=== PATIENT | female | born 2000 | race Caucasian/White ===

== ENCOUNTER 2021-08-28 17:05 | Emergency (ER) | payer OTHER ==
[~2021-08-28] VITALS: Ht 167.6 cm; Wt 59.1 kg
[2021-08-28 17:06] VITALS: BP 132/75
[2021-08-28] MEDS ORDERED: BCP PO (17:14)
[2021-08-28 17:24] VITALS: O2SAT 99
[2021-08-28 18:11] LABS: RSV AMPLIFICATION NEGATIVE (NEGATIVE)
== END 2021-08-28 18:20 | disposition home or self-care (01) ==
LOC: M ED 17:05
DX: Z20.822 Contact with and (suspected) exposure to COVID-19 (principal); Z88.6 Allergy status to analgesic agent; R05.9 Cough, unspecified; R51.9 Headache, unspecified

== ENCOUNTER 2021-12-03 13:03 | Emergency (ER) | payer OTHER ==
[~2021-12-03] VITALS: Ht 167.6 cm; Wt 62.7 kg
[~2021-12-03 13:03] MED LIST: BCP PO
[2021-12-03] MEDS ORDERED: CEPH500C PO (17:47)
[2021-12-03 18:11] VITALS: BP 119/61
== END 2021-12-03 18:12 | disposition home or self-care (01) ==
LOC: M ED 13:03
DX: N30.90 Cystitis, unspecified without hematuria (principal); F17.200 Nicotine dependence, unspecified, uncomplicated; Z88.5 Allergy status to narcotic agent

== ENCOUNTER 2022-06-27 20:33 | Emergency (ER) | payer OTHER ==
[~2022-06-27] VITALS: Ht 167.6 cm; Wt 68.1 kg
[~2022-06-27 20:33] MED LIST changes: +CEPH500C PO
[2022-06-28 00:59] LABS: HCG, SERUM QUALITATIVE POSITIVE (NEGATIVE)
[2022-06-28 04:57] VITALS: BP 111/57
== END 2022-06-28 04:58 | disposition home or self-care (01) ==
LOC: M ED 20:33
DX: O26.891 Other specified pregnancy related conditions, first trimester (principal); R10.2 Pelvic and perineal pain; F17.200 Nicotine dependence, unspecified, uncomplicated; Z88.5 Allergy status to narcotic agent; Z3A.00 Weeks of gestation of pregnancy not specified

== ENCOUNTER 2022-07-11 14:51 | Emergency (ER) | payer OTHER ==
[~2022-07-11] VITALS: Ht 167.6 cm; Wt 70.6 kg
[2022-07-11 16:24] LABS: BASO % 0.3 % (0.0-1.0); EOS # 0.1 10^3/uL (0.0-0.5); EOS % 0.9 % (0.0-3.0); HEMATOCRIT 37.8 % (36.0-47.0); HEMOGLOBIN 13.1 g/dl (12.0-15.5); LYMPH # 1.8 10^3/uL (1.5-5.0); LYMPH % 26.5 % (24.0-44.0); MEAN CORPUSCULAR HEMOGLOBIN 30.8 pg (27.0-33.0); MEAN CORPUSCULAR HGB CONC 34.7 g/dl (32.0-36.5); MEAN CORPUSCULAR VOLUME 88.9 fl (80.0-96.0); MONO # 0.7 10^3/uL (0.0-0.8); MONO % 10.4 % (2.0-8.0); NEUTROPHILS # 4.3 10^3/uL (1.5-8.5); NEUTROPHILS % 61.8 % (36.0-66.0); PLATELET COUNT, AUTOMATED 279 10^3/uL (150-450); RED BLOOD COUNT 4.25 10^6/uL (4.00-5.40)
[2022-07-11] MEDS ORDERED: ACETAMINOPHEN 500 MG TAB PO ONE (17:15)
[2022-07-11 17:18] LABS: BLOOD UREA NITROGEN 15 MG/DL (7-18); CALCIUM LEVEL 9.1 MG/DL (8.5-10.1); CARBON DIOXIDE LEVEL 24 MEQ/L (21-32); CHLORIDE LEVEL 110 MEQ/L (98-107); CREATININE FOR GFR 0.53 MG/DL (0.55-1.30); GLOMERULAR FILTRATION RATE > 60.0 (>60); GLUCOSE, FASTING 103 MG/DL (70-100); HCG, SERUM QUANTITATIVE 2293 MIU/ML; POTASSIUM SERUM 4.2 MEQ/L (3.5-5.1); SODIUM LEVEL 140 MEQ/L (136-145)
[2022-07-11 19:41] VITALS: BP 123/68
== END 2022-07-11 19:44 | disposition home or self-care (01) ==
LOC: M ED 14:51
DX: O03.9 Complete or unspecified spontaneous abortion without complication (principal); Z88.5 Allergy status to narcotic agent

== ENCOUNTER → 2022-08-12 | Outpatient (CLI) | payer OTHER, SELFPAY ==
[~2022-08-12] MED LIST changes: +PROHANCE 279.3MG/ML 15ML VIAL ONE
== END ==
LOC: M PLAIMG 08:23
PROVIDERS: ATTEND Obstetrics & Gynecology
DX: Q51.3 Bicornate uterus (principal)
CPT/HCPCS: 72197; A9576

== ENCOUNTER 2022-12-25 16:00 | Emergency (ER) | payer OTHER ==
[~2022-12-25] VITALS: Ht 167.6 cm; Wt 75.8 kg
[~2022-12-25 16:00] MED LIST changes: -PROHANCE 279.3MG/ML 15ML VIAL ONE
[2022-12-25 17:11] LABS: BASO % 0.2 % (0.0-1.0); EOS # 0.1 10^3/uL (0.0-0.5); HEMATOCRIT 37.9 % (36.0-47.0); HEMOGLOBIN 12.5 g/dl (12.0-15.5); LYMPH # 1.9 10^3/uL (1.5-5.0); LYMPH % 21.1 % (24.0-44.0); MEAN CORPUSCULAR VOLUME 91.1 fl (80.0-96.0); MONO # 0.7 10^3/uL (0.0-0.8); MONO % 7.9 % (2.0-8.0); NEUTROPHILS # 6.3 10^3/uL (1.5-8.5); NEUTROPHILS % 69.5 % (36.0-66.0); PLATELET COUNT, AUTOMATED 256 10^3/uL (150-450); RED BLOOD COUNT 4.16 10^6/uL (4.00-5.40); WHITE BLOOD COUNT 9.1 10^3/uL (4.0-10.0)
[2022-12-25 17:15] LABS: APPEARANCE, URINE HAZY (CLEAR); BACTERIA, URINE AUTO 1+ (NEGATIVE); BILIRUBIN, URINE AUTO NEGATIVE (NEGATIVE); BLOOD, URINE BLOOD NEGATIVE (NEGATIVE); COLOR, URINE YELLOW (YELLOW); GLUCOSE, URINE (UA) AUTO NEGATIVE (NEGATIVE); KETONE, URINE AUTO NEGATIVE (NEGATIVE); LEUKOCYTE ESTERASE, URINE AUTO 1+ (NEGATIVE); NITRITE, URINE AUTO NEGATIVE (NEGATIVE); PROTEIN, URINE AUTO NEGATIVE (NEGATIVE); RBC, URINE AUTO 2 /HPF (0-3); SPECIFIC GRAVITY URINE AUTO 1.013 (1.002-1.035); SQUAMOUS EPITHELIAL CELL UR AU 1 /HPF (0-6); WBC, URINE AUTO 2 /HPF (0-3)
[2022-12-25] MEDS ORDERED: MIRA3350 PO (17:57)
[2022-12-25 18:12] VITALS: BP 116/58
== END 2022-12-25 18:15 | disposition home or self-care (01) ==
LOC: M ED 16:00
DX: O99.611 Diseases of the digestive system complicating pregnancy, first trimester (principal); K59.00 Constipation, unspecified; Q51.3 Bicornate uterus; Z3A.01 Less than 8 weeks gestation of pregnancy; Z88.5 Allergy status to narcotic agent; Z79.899 Other long term (current) drug therapy

== ENCOUNTER 2023-01-14 14:14 | Emergency (ER) | payer OTHER ==
[~2023-01-14] VITALS: Ht 167.6 cm; Wt 79.9 kg
[~2023-01-14 14:14] MED LIST changes: +MIRA3350 PO
[2023-01-14] MEDS ORDERED: DOCU100C16 (14:24)
[2023-01-14] MEDS ORDERED: PYRI50TA41 (14:24)
[2023-01-14] MEDS ORDERED: UNIS25TA3 (14:24)
[2023-01-14 15:30] LABS: BASO % 0.2 % (0.0-1.0); EOS # 0.1 10^3/uL (0.0-0.5); EOS % 0.9 % (0.0-3.0); HEMATOCRIT 37.8 % (36.0-47.0); HEMOGLOBIN 13.1 g/dl (12.0-15.5); LYMPH % 19.2 % (24.0-44.0); MEAN CORPUSCULAR HEMOGLOBIN 30.7 pg (27.0-33.0); MEAN CORPUSCULAR HGB CONC 34.7 g/dl (32.0-36.5); MEAN CORPUSCULAR VOLUME 88.5 fl (80.0-96.0); MONO # 0.7 10^3/uL (0.0-0.8); MONO % 6.8 % (2.0-8.0); NEUTROPHILS # 7.5 10^3/uL (1.5-8.5); NEUTROPHILS % 72.5 % (36.0-66.0); PLATELET COUNT, AUTOMATED 290 10^3/uL (150-450); RED BLOOD COUNT 4.27 10^6/uL (4.00-5.40); WHITE BLOOD COUNT 10.4 10^3/uL (4.0-10.0)
[2023-01-14 15:34] LABS: APPEARANCE, URINE CLEAR (CLEAR); BACTERIA, URINE AUTO 1+ (NEGATIVE); BILIRUBIN, URINE AUTO NEGATIVE (NEGATIVE); BLOOD, URINE BLOOD NEGATIVE (NEGATIVE); COLOR, URINE STRAW (YELLOW); GLUCOSE, URINE (UA) AUTO NEGATIVE (NEGATIVE); KETONE, URINE AUTO NEGATIVE (NEGATIVE); LEUKOCYTE ESTERASE, URINE AUTO NEGATIVE (NEGATIVE); NITRITE, URINE AUTO NEGATIVE (NEGATIVE); PROTEIN, URINE AUTO NEGATIVE (NEGATIVE); RBC, URINE AUTO 1 /HPF (0-3); SPECIFIC GRAVITY URINE AUTO 1.013 (1.002-1.035); SQUAMOUS EPITHELIAL CELL UR AU 1 /HPF (0-6); UROBILINOGEN, URINE AUTO 0.2 mg/dL (0.0-2.0); WBC, URINE AUTO 1 /HPF (0-3)
[2023-01-14 16:51] LABS: GC DNA AMPLIFICATION NEGATIVE (NEGATIVE)
[2023-01-14 17:54] VITALS: BP 130/64
== END 2023-01-14 18:05 | disposition home or self-care (01) ==
LOC: M ED 14:14
DX: O26.891 Other specified pregnancy related conditions, first trimester (principal); R10.9 Unspecified abdominal pain; O34.00 Maternal care for unspecified congenital malformation of uterus, unspecified trimester; Q51.3 Bicornate uterus; Z88.6 Allergy status to analgesic agent; Z3A.09 9 weeks gestation of pregnancy; Z79.810 Long term (current) use of selective estrogen receptor modulators (SERMs); Z79.899 Other long term (current) drug therapy

== ENCOUNTER 2023-01-17 08:41 | Emergency (ER) | payer OTHER ==
[~2023-01-17] VITALS: Ht 167.6 cm; Wt 79.1 kg
[~2023-01-17 08:41] MED LIST changes: +DOCU100C16; +PYRI50TA41; +UNIS25TA3
[2023-01-17] MEDS ORDERED: PREN1TAB11 PO (08:48)
[2023-01-17 11:31] LABS: BASO % 0.2 % (0.0-1.0); EOS # 0.1 10^3/uL (0.0-0.5); EOS % 0.8 % (0.0-3.0); LYMPH # 1.9 10^3/uL (1.5-5.0); LYMPH % 18.4 % (24.0-44.0); MEAN CORPUSCULAR HGB CONC 33.3 g/dl (32.0-36.5); MEAN CORPUSCULAR VOLUME 89.9 fl (80.0-96.0); MONO # 0.6 10^3/uL (0.0-0.8); MONO % 6.3 % (2.0-8.0); NEUTROPHILS # 7.5 10^3/uL (1.5-8.5); PLATELET COUNT, AUTOMATED 311 10^3/uL (150-450); RED BLOOD COUNT 4.34 10^6/uL (4.00-5.40); WHITE BLOOD COUNT 10.1 10^3/uL (4.0-10.0)
[2023-01-17 11:56] LABS: BLOOD UREA NITROGEN 11 MG/DL (9-23); CALCIUM LEVEL 9.2 MG/DL (8.5-10.1); CARBON DIOXIDE LEVEL 25 MMOL/L (20-31); CHLORIDE LEVEL 106 MMOL/L (98-107); CREATININE FOR GFR 0.45 MG/DL (0.55-1.30); GLOMERULAR FILTRATION RATE > 60.0 (>60); GLUCOSE, FASTING 86 MG/DL (60-100); POTASSIUM SERUM 4.6 MMOL/L (3.5-5.1); SODIUM LEVEL 139 MMOL/L (136-145)
[2023-01-17 12:12] LABS: APPEARANCE, URINE MANUAL CLOUDY (CLEAR); COLOR, URINE MANUAL YELLOW (YELLOW)
[2023-01-17 12:14] LABS: GLUCOSE, URINE (UA) MANUAL NEGATIVE (NEGATIVE); KETONE, URINE MANUAL NEGATIVE (NEGATIVE); PROTEIN, URINE MANUAL 1+ mg/dL (NEGATIVE)
[2023-01-17 12:15] LABS: BILIRUBIN, URINE MANUAL NEGATIVE (NEGATIVE); NITRITE, URINE MANUAL NEGATIVE (NEGATIVE); UROBILINOGEN, URINE MANUAL NORMAL (NORMAL)
[2023-01-17 12:16] LABS: BLOOD URINE MANUAL POSITIVE (NEGATIVE); LEUKOCYTE ESTERASE, URINE MAN POSITIVE (NEGATIVE)
[2023-01-17 12:19] LABS: RBC, URINE NONE SEEN /hpf (0-3)
[2023-01-17 12:20] LABS: BACTERIA, URINE LARGE AMOUNT; HYALINE CAST, URINE NONE SEEN /lpf (0-1); SQUAMOUS EPITHELIAL CELL URINE LARGE AMOUNT /hpf (SMALL AMT)
[2023-01-17 12:22] LABS: HCG, SERUM QUANTITATIVE 142783.2 MIU/ML (<4.2)
[2023-01-17] MEDS ORDERED: CEPH500C PO (15:39)
[2023-01-17 15:48] VITALS: BP 115/59
== END 2023-01-17 15:49 | disposition home or self-care (01) ==
LOC: M ED 08:41
DX: O20.0 Threatened abortion (principal); O23.91 Unspecified genitourinary tract infection in pregnancy, first trimester; R82.71 Bacteriuria; Z87.42 Personal history of other diseases of the female genital tract; Z3A.09 9 weeks gestation of pregnancy; Z88.5 Allergy status to narcotic agent; Z79.810 Long term (current) use of selective estrogen receptor modulators (SERMs); Z79.899 Other long term (current) drug therapy

== ENCOUNTER 2023-02-14 08:07 | Emergency (ER) | payer OTHER ==
[~2023-02-14] VITALS: Ht 167.6 cm; Wt 83.5 kg
[~2023-02-14 08:07] MED LIST changes: +PREN1TAB11 PO
[2023-02-14 10:52] VITALS: BP 126/58
== END 2023-02-14 10:54 | disposition home or self-care (01) ==
LOC: M ED 08:07
DX: O21.1 Hyperemesis gravidarum with metabolic disturbance (principal); O99.891 Other specified diseases and conditions complicating pregnancy; R10.2 Pelvic and perineal pain; Z3A.14 14 weeks gestation of pregnancy; Z88.5 Allergy status to narcotic agent; Z79.810 Long term (current) use of selective estrogen receptor modulators (SERMs); Z79.899 Other long term (current) drug therapy

== ENCOUNTER 2023-03-15 18:12 | Emergency (ER) | payer OTHER ==
[~2023-03-15] VITALS: Ht 167.6 cm; Wt 88.8 kg
[2023-03-15] MEDS ORDERED: CEPH500T PO (23:45)
[2023-03-15] MEDS ORDERED: CEPHALEXIN 500 MG CAP PO ONE (23:45)
[2023-03-16 00:21] VITALS: BP 118/74
== END 2023-03-16 00:32 | disposition home or self-care (01) ==
LOC: M ED 18:12
DX: O23.41 Unspecified infection of urinary tract in pregnancy, first trimester (principal); Z3A.18 18 weeks gestation of pregnancy; Z88.5 Allergy status to narcotic agent; Z79.810 Long term (current) use of selective estrogen receptor modulators (SERMs); Z79.899 Other long term (current) drug therapy

== ENCOUNTER 2023-05-12 11:09 | Outpatient (CLI) | payer OTHER ==
[~2023-05-12] VITALS: Ht 167.6 cm; Wt 94.4 kg
[~2023-05-12 11:09] MED LIST changes: +CEPH500T PO
[2023-05-12] MEDS ORDERED: VITA100065 PO (11:38)
[2023-05-12] MEDS ORDERED: FERR325T3 PO (11:38)
[2023-05-12 12:51] LABS: APPEARANCE, URINE HAZY (CLEAR); BACTERIA, URINE AUTO 1+ (NEGATIVE); BILIRUBIN, URINE AUTO NEGATIVE (NEGATIVE); BLOOD, URINE BLOOD NEGATIVE (NEGATIVE); CALCIUM OXALATE CRYSTALS SMALL; COLOR, URINE YELLOW (YELLOW); GLUCOSE, URINE (UA) AUTO NEGATIVE (NEGATIVE); KETONE, URINE AUTO NEGATIVE (NEGATIVE); LEUKOCYTE ESTERASE, URINE AUTO NEGATIVE (NEGATIVE); MUCUS, URINE SMALL (NEGATIVE); NITRITE, URINE AUTO NEGATIVE (NEGATIVE); PROTEIN, URINE AUTO NEGATIVE (NEGATIVE); RBC, URINE AUTO 2 /HPF (0-3); SPECIFIC GRAVITY URINE AUTO 1.018 (1.002-1.035); SQUAMOUS EPITHELIAL CELL UR AU 2 /HPF (0-6); UROBILINOGEN, URINE AUTO 0.2 mg/dL (0.0-2.0); WBC, URINE AUTO 3 /HPF (0-3)
== END 2023-05-12 14:00 | disposition home or self-care (01) ==
LOC: M LDO 11:09
PROVIDERS: ATTEND Obstetrics & Gynecology
DX: O99.282 Endocrine, nutritional and metabolic diseases complicating pregnancy, second trimester (principal); E86.0 Dehydration; O26.892 Other specified pregnancy related conditions, second trimester; R42 Dizziness and giddiness; Z3A.27 27 weeks gestation of pregnancy; Z88.5 Allergy status to narcotic agent
CPT/HCPCS: 59025; 81001; 87086; G0463

== ENCOUNTER → 2023-05-25 | Outpatient (CLI) | payer OTHER ==
[~2023-05-25] VITALS: Ht 167.6 cm; Wt 95.8 kg
[~2023-05-25] MED LIST changes: +FERR325T3 PO; +HOME MED LIST COMPLETE! XX SCH; +VITA100065 PO
[2023-05-25 17:44] VITALS: BP 120/57
== END ==
LOC: M LDO 17:23
PROVIDERS: ATTEND Obstetrics & Gynecology
DX: O36.8130 Decreased fetal movements, third trimester, not applicable or unspecified (principal); Z3A.28 28 weeks gestation of pregnancy
CPT/HCPCS: 59025; 76815; G0463

== ENCOUNTER 2023-05-29 11:22 | Observation (INO) | payer OTHER ==
[2023-05-29] VITALS (11 sets, daily range): BP systolic 112–130; BP diastolic 58–64; TEMP 97.2; O2SAT 97
[~2023-05-29] VITALS: Ht 167.6 cm; Wt 94.0 kg
[~2023-05-29 11:22] MED LIST changes: -HOME MED LIST COMPLETE! XX SCH
[2023-05-29] MEDS ORDERED: NS 500 ML IV ONE (11:30)
[2023-05-29] MEDS ORDERED: NS 1,000 ML IV ONE (12:15)
[2023-05-29 12:22] LABS: BASO % 0.2 % (0.0-1.0); EOS % 0.4 % (0.0-3.0); HEMATOCRIT 34.1 % (36.0-47.0); HEMOGLOBIN 11.3 g/dl (12.0-15.5); LYMPH # 1.2 10^3/uL (1.5-5.0); LYMPH % 11.5 % (24.0-44.0); MEAN CORPUSCULAR HEMOGLOBIN 29.4 pg (27.0-33.0); MEAN CORPUSCULAR HGB CONC 33.1 g/dl (32.0-36.5); MEAN CORPUSCULAR VOLUME 88.6 fl (80.0-96.0); MONO # 0.8 10^3/uL (0.0-0.8); MONO % 7.3 % (2.0-8.0); NEUTROPHILS # 8.3 10^3/uL (1.5-8.5); PLATELET COUNT, AUTOMATED 285 10^3/uL (150-450); RED BLOOD COUNT 3.85 10^6/uL (4.00-5.40); WHITE BLOOD COUNT 10.4 10^3/uL (4.0-10.0)
[2023-05-29 12:25] LABS: INR 1.02; PARTIAL THROMBOPLASTIN TIME 25.6 SECONDS (24.8-34.2); PROTHROMBIN TIME 13.1 SECONDS (12.5-14.5)
[2023-05-29 12:29] LABS: HEMATOCRIT 33.5 % (36.0-47.0); HEMOGLOBIN 11.3 g/dl (12.0-15.5); MEAN CORPUSCULAR HEMOGLOBIN 29.7 pg (27.0-33.0); MEAN CORPUSCULAR HGB CONC 33.7 g/dl (32.0-36.5); MEAN CORPUSCULAR VOLUME 87.9 fl (80.0-96.0); PLATELET COUNT, AUTOMATED 302 10^3/uL (150-450); RED BLOOD COUNT 3.81 10^6/uL (4.00-5.40); WHITE BLOOD COUNT 10.6 10^3/uL (4.0-10.0)
[2023-05-29 12:35] LABS: LIPASE 29 U/L (12-53)
[2023-05-29 12:36] LABS: AMYLASE 47 U/L (30-118)
[2023-05-29 12:37] LABS: ALBUMIN 2.8 G/DL (3.2-5.2); ALKALINE PHOSPHATASE 77 U/L (46-116); ALT/SGPT 11 U/L (7.0-40); AST/SGOT < 8 U/L (<34); BILIRUBIN,DIRECT < 0.1 MG/DL (<0.4); BILIRUBIN,TOTAL 0.4 MG/DL (0.3-1.2); BLOOD UREA NITROGEN 9 MG/DL (9-23); CALCIUM LEVEL 9.7 MG/DL (8.5-10.1); CARBON DIOXIDE LEVEL 23 MMOL/L (20-31); CHLORIDE LEVEL 108 MMOL/L (98-107); CREATININE FOR GFR 0.43 MG/DL (0.55-1.30); GLOMERULAR FILTRATION RATE > 60.0 (>60); GLUCOSE, FASTING 101 MG/DL (60-100); SODIUM LEVEL 141 MMOL/L (136-145); TOTAL PROTEIN 6.1 G/DL (5.7-8.2)
[2023-05-29] MEDS ORDERED: LIDOCAINE 1% MDV 20ML VIAL INFIL PRN (13:05)
[2023-05-29] MEDS ORDERED: METHYLERGONOVINE MALEATE 0.2MG/ML 1ML VIAL IM PRN (13:05)
[2023-05-29] MEDS ORDERED: CARBOPROST TROMETHAMINE 250 MCG/ML AMP IM PRN (13:05)
[2023-05-29] MEDS ORDERED: TRANEXAMIC ACID INJection 1,000 MG in NS 100 ML IV PRN (13:05)
[2023-05-29] MEDS ORDERED: OXYTOCIN DRIP 30 UNITS in IV 1 EA IV PRN ×6 (13:05)
[2023-05-29] MEDS ORDERED: NS 1,000 ML IV SCH (13:05)
[2023-05-29] MEDS: BETAMETHASONE SOLUSPAN 6MG/ML 5ML VIAL IM SCH (13:33)
[2023-05-29] MEDS ORDERED: ISOVUE-370 76% 100ML VIAL As Ordered ONE (13:43)
[2023-05-29] MEDS: LR 1,000 ML IV SCH (14:43)
[2023-05-29] MEDS ORDERED: MED REC CURRENTLY UNOBTAINABLE XX SCH (16:00)
[2023-05-30] VITALS (21 sets, daily range): BP systolic 100–135; BP diastolic 54–68
[2023-05-30] MEDS: LR 1,000 ML IV SCH (06:28)
[2023-05-30] MEDS: BETAMETHASONE SOLUSPAN 6MG/ML 5ML VIAL IM SCH (13:26)
== END 2023-05-30 14:43 | disposition home or self-care (01) ==
LOC: M ED 11:22 → EDBD 11:22 → M LDI 11:23 → UNDOADMOB 11:23 → M LDI 13:14
PROVIDERS: ADMIT Obstetrics & Gynecology; ATTEND Obstetrics & Gynecology
DX: O71.89 Other specified obstetric trauma (principal); O60.03 Preterm labor without delivery, third trimester; O9A.213 Injury, poisoning and certain other consequences of external causes complicating pregnancy, third trimester; V48.5XXA Car driver injured in noncollision transport accident in traffic accident, initial encounter; R10.9 Unspecified abdominal pain; Y92.410 Unspecified street and highway as the place of occurrence of the external cause; Y93.9 Activity, unspecified; Y99.9 Unspecified external cause status; Z3A.29 29 weeks gestation of pregnancy
CPT/HCPCS: 59025; 74177; 76705; 80047; 80048; 80076; 82150; 83605; 83690; 85025; 85027; 85384; 85610; 85730; 86850; 86900; 86901; 93041; 96372; 96374; 96375; 96376; 99285; G0463; J0702; Q9967

== ENCOUNTER → 2023-06-06 | Outpatient (CLI) | payer OTHER | LOC: M RAD 06:31 | PROVIDERS: ATTEND Nurse Practitioner Women's Health | DX: O26.843 Uterine size-date discrepancy, third trimester (principal); Z3A.32 32 weeks gestation of pregnancy ==

== ENCOUNTER 2023-06-26 18:03 | Outpatient (CLI) | payer OTHER ==
[~2023-06-26] VITALS: Ht 167.6 cm; Wt 99.2 kg
[2023-06-26 18:22] VITALS: BP 119/66
[2023-06-26] MEDS ORDERED: HOME MED LIST COMPLETE! XX SCH (18:25)
[2023-06-26] MEDS ORDERED: FLUCONAZOLE 50MG TABLET PO ONE (19:05)
[2023-06-26 19:57] LABS: HEMATOCRIT 36.7 % (36.0-47.0); HEMOGLOBIN 12.3 g/dl (12.0-15.5); MEAN CORPUSCULAR HEMOGLOBIN 29.6 pg (27.0-33.0); MEAN CORPUSCULAR HGB CONC 33.5 g/dl (32.0-36.5); MEAN CORPUSCULAR VOLUME 88.2 fl (80.0-96.0); PLATELET COUNT, AUTOMATED 279 10^3/uL (150-450); RED BLOOD COUNT 4.16 10^6/uL (4.00-5.40); WHITE BLOOD COUNT 10.1 10^3/uL (4.0-10.0)
[2023-06-26 20:05] LABS: ALBUMIN 2.7 G/DL (3.2-5.2); ALKALINE PHOSPHATASE 96 U/L (46-116); ALT/SGPT 12 U/L (7.0-40); AST/SGOT < 8 U/L (<34); BILIRUBIN,TOTAL 0.5 MG/DL (0.3-1.2); BLOOD UREA NITROGEN 8 MG/DL (9-23); CALCIUM LEVEL 9.7 MG/DL (8.5-10.1); CARBON DIOXIDE LEVEL 21 MMOL/L (20-31); CHLORIDE LEVEL 107 MMOL/L (98-107); CREATININE FOR GFR 0.41 MG/DL (0.55-1.30); GLOMERULAR FILTRATION RATE > 60.0 (>60); GLUCOSE, FASTING 89 MG/DL (60-100); POTASSIUM SERUM 3.8 MMOL/L (3.5-5.1); SODIUM LEVEL 140 MMOL/L (136-145); TOTAL PROTEIN 5.9 G/DL (5.7-8.2)
[2023-06-26 20:09] LABS: INR 1.04; PROTHROMBIN TIME 13.3 SECONDS (12.5-14.5)
[2023-06-26 20:10] LABS: PARTIAL THROMBOPLASTIN TIME 26.7 SECONDS (24.8-34.2)
== END 2023-06-26 20:56 | disposition home or self-care (01) ==
LOC: M LDO 18:03
PROVIDERS: ATTEND Obstetrics & Gynecology
DX: O47.03 False labor before 37 completed weeks of gestation, third trimester (principal); O32.1XX9 Maternal care for breech presentation, other fetus; O34.03 Maternal care for unspecified congenital malformation of uterus, third trimester; Q51.3 Bicornate uterus; Z3A.33 33 weeks gestation of pregnancy
CPT/HCPCS: 59025; 76815; 76820; 80053; 85027; 85384; 85610; 85730; G0463

== ENCOUNTER 2023-07-04 22:00 | Outpatient (CLI) | payer OTHER ==
[~2023-07-04] VITALS: Ht 167.6 cm; Wt 100.2 kg
[2023-07-04 22:18] VITALS: BP 143/74
[2023-07-04] MEDS ORDERED: HOME MED LIST COMPLETE! XX SCH (22:25)
[2023-07-04 22:34] VITALS: BP 134/72
[2023-07-04] MEDS ORDERED: LR 1,000 ML IV ONE (23:15)
[2023-07-05] MEDS ORDERED: LR 1,000 ML IV SCH (01:15)
[2023-07-05 01:30] VITALS: BP 111/55
[2023-07-05] MEDS ORDERED: FLUCONAZOLE 50MG TABLET PO ONE (02:00)
== END 2023-07-05 06:37 | disposition home or self-care (01) ==
LOC: M LDO 22:00
PROVIDERS: ATTEND Obstetrics & Gynecology
DX: O23.593 Infection of other part of genital tract in pregnancy, third trimester (principal); O47.03 False labor before 37 completed weeks of gestation, third trimester; O32.1XX0 Maternal care for breech presentation, not applicable or unspecified; Z3A.34 34 weeks gestation of pregnancy; Z88.5 Allergy status to narcotic agent
CPT/HCPCS: 59025; 76815; 81001; G0463

== ENCOUNTER 2023-07-23 16:33 | Inpatient (IN) | payer OTHER ==
[~2023-07-23] VITALS: Ht 167.6 cm; Wt 103.1 kg
[2023-07-23 16:46] VITALS: BP 130/79
[2023-07-23] MEDS ORDERED: LACTATED RINGER'S 1000 ML IV STA (17:27)
[2023-07-23] MEDS ORDERED: OXYTOCIN DRIP 30 UNITS in IV 1 EA IV PRN ×4 (17:30)
[2023-07-23] MEDS ORDERED: METHYLERGONOVINE MALEATE 0.2MG/ML 1ML VIAL IM PRN ×2 (17:30→21:30)
[2023-07-23] MEDS ORDERED: OXYTOCIN INJ 10UNITS/ML 1ML VIAL IM PRN (17:30)
[2023-07-23] MEDS ORDERED: BICITRA 30ML SOLN UDC PO ONE (17:30)
[2023-07-23] MEDS ORDERED: CARBOPROST TROMETHAMINE 250 MCG/ML AMP IM PRN (17:30)
[2023-07-23] MEDS ORDERED: LIDOCAINE 1% MDV 20ML VIAL INFIL PRN (17:30)
[2023-07-23] MEDS ORDERED: TRANEXAMIC ACID INJection 1,000 MG in NS 100 ML IV PRN (17:30)
[2023-07-23] MEDS ORDERED: ceFAZolin SOD 2 GM in IV 1 EA IV ONE (17:30)
[2023-07-23] MEDS ORDERED: LR 1,000 ML IV SCH (17:30)
[2023-07-23 18:16] LABS: HEMOGLOBIN 12.8 g/dl (12.0-15.5); MEAN CORPUSCULAR HEMOGLOBIN 30.3 pg (27.0-33.0); MEAN CORPUSCULAR HGB CONC 34.6 g/dl (32.0-36.5); MEAN CORPUSCULAR VOLUME 87.5 fl (80.0-96.0); PLATELET COUNT, AUTOMATED 277 10^3/uL (150-450); RED BLOOD COUNT 4.23 10^6/uL (4.00-5.40); WHITE BLOOD COUNT 12.5 10^3/uL (4.0-10.0)
[2023-07-23 18:26] VITALS: BP 124/85
[2023-07-23] MEDS ORDERED: MORPHINE PRES-FREE INJ 10 MG/10 ML VIAL As Ordered ONE (19:24)
[2023-07-23] MEDS ORDERED: OXYTOCIN INJ 10UNITS/ML 1ML VIAL As Ordered ONE (19:24)
[2023-07-23] MEDS ORDERED: ONDANSETRON 4MG 2ML VIAL As Ordered ONE (19:26)
[2023-07-23] MEDS ORDERED: KETOROLAC 60MG 2ML VIAL As Ordered ONE (19:26)
[2023-07-23] MEDS ORDERED: OXYTOCIN 30UNITS IN 0.9% NaCl 500ML IV BAG As Ordered ONE (19:27)
[2023-07-23] MEDS ORDERED: ACETAMINOPHEN 1000MG 100ML IV BAG As Ordered ONE (19:27)
[2023-07-23 20:36] LABS: CORD GAS ABE V -5.6; CORD GAS HCO3 V 21.3 MMOL/L; CORD GAS O2 SAT V 53.8 %; CORD GAS PCO2 V 46.4 mmHg; CORD GAS PH V 7.28 UNITS; CORD GAS PO2 V 23.4 mmHg; CORD GAS SBC V 18.9 MMOL/L; CORD GAS TCO2 V 22.7 MMOL/L
[2023-07-23 20:46] LABS: CORD GAS ABE A -3.6; CORD GAS HCO3 A 25.8 MMOL/L; CORD GAS O2 SAT A 20.3 %; CORD GAS PCO2 A 64.9 mmHg; CORD GAS PH A 7.218 UNITS; CORD GAS PO2 A 12.3 mmHg; CORD GAS SBC A 19.5 MMOL/L; CORD GAS TCO2 A 27.8 MMOL/L
[2023-07-23] MEDS ORDERED: PHENYLephrine 500MCG 5ML (100MCG/ML) SYRINGE As Ordered ONE (20:55)
[2023-07-23] MEDS: DOCUSATE SODIUM 100MG CAPSULE PO SCH (21:00)
[2023-07-23] MEDS ORDERED: IBUPROFEN 600MG TAB PO PRN (21:30)
[2023-07-23] MEDS ORDERED: oxyCODONE 5MG TAB PO PRN ×2 (21:30)
[2023-07-23] MEDS ORDERED: ONDANSETRON 4MG 2ML VIAL IV PRN (21:30)
[2023-07-23] MEDS ORDERED: ANUSOL HC CREAM 30GM TOP PRN (21:30)
[2023-07-23] MEDS ORDERED: ACETAMINOPHEN 500 MG TAB PO PRN (21:30)
[2023-07-23] MEDS ORDERED: IBUPROFEN 800 MG TAB PO PRN (21:30)
[2023-07-23] MEDS ORDERED: RHOGAM 300MCG (1500IU) INJ IM SCH (21:30)
[2023-07-23] MEDS ORDERED: ACETAMINOPHEN TAB 650MG DOSE (2X325MG) PO PRN (21:30)
[2023-07-23] MEDS ORDERED: MORPHINE 4 MG/ML 1ML VIAL IV PRN (21:30)
[2023-07-23] MEDS ORDERED: OXYTOCIN DRIP 30 UNITS in IV 1 EA IV SCH (21:30)
[2023-07-23] MEDS ORDERED: SIMETHICONE 80MG CHEW TAB PO PRN (21:30)
[2023-07-23 22:05] VITALS: TEMP 96.9
[2023-07-23 22:45] VITALS: BP 142/89; O2SAT 97
[2023-07-23] MEDS: LR 1,000 ML IV SCH (23:09)
[2023-07-23 23:25] VITALS: BP 130/72; O2SAT 97
[2023-07-24] VITALS (8 sets, daily range): BP systolic 121–142; BP diastolic 60–84; O2SAT 96–99
[2023-07-24] MEDS ORDERED: UNRESOLVED CLARIFICATION ENTRY XX SCH (00:01)
[2023-07-24] MEDS: KETOROLAC 30 MG/ML 1ML VIAL IV SCH ×3 (02:15→14:08)
[2023-07-24] MEDS: ENOXAPARIN 60MG/0.6ML SYRINGE (J1650 PER 10MG) SC SCH (04:17)
[2023-07-24] MEDS: LR 1,000 ML IV SCH ×2 (06:26→13:30)
[2023-07-24] MEDS ORDERED: diphenhydrAMINE 50MG/ML VIAL IV PRN (07:40)
[2023-07-24] MEDS ORDERED: NALOXONE INJ 0.4MG/1ML VIAL IV PRN ×2 (07:40)
[2023-07-24] MEDS ORDERED: METOCLOPRAMIDE INJ 10MG/2ML VIAL IV PRN (07:40)
[2023-07-24] MEDS ORDERED: **NOTE PATIENT COMMENT** MISC XX SCH (07:40)
[2023-07-24] MEDS: SLF 3 ML SYR IV SCH ×2 (07:40→15:40)
[2023-07-24] MEDS ORDERED: ONDANSETRON 4MG 2ML VIAL IV PRN (07:40)
[2023-07-24] MEDS: DOCUSATE SODIUM 100MG CAPSULE PO SCH ×2 (08:18→22:19)
[2023-07-24] MEDS: PRENATAL VITAMINS CHEWABLE TABLET PO SCH (08:18)
[2023-07-24 08:38] LABS: HEMATOCRIT 32.8 % (36.0-47.0); HEMOGLOBIN 11.1 g/dl (12.0-15.5); MEAN CORPUSCULAR HEMOGLOBIN 30.1 pg (27.0-33.0); MEAN CORPUSCULAR HGB CONC 33.8 g/dl (32.0-36.5); MEAN CORPUSCULAR VOLUME 88.9 fl (80.0-96.0); PLATELET COUNT, AUTOMATED 248 10^3/uL (150-450); RED BLOOD COUNT 3.69 10^6/uL (4.00-5.40); WHITE BLOOD COUNT 20.7 10^3/uL (4.0-10.0)
[2023-07-24] MEDS: IBUPROFEN 800 MG TAB PO SCH (22:20)
[2023-07-25 02:00] VITALS: BP 126/71; O2SAT 100
[2023-07-25] MEDS: IBUPROFEN 800 MG TAB PO SCH (05:38)
[2023-07-25 06:00] VITALS: BP 121/67; O2SAT 99
[2023-07-25] MEDS ORDERED: IBUP80TA PO (08:21)
[2023-07-25] MEDS ORDERED: COLA100C5 PO (08:21)
[2023-07-25] MEDS ORDERED: ACET1TAB55 PO (08:21)
[2023-07-25] MEDS: PRENATAL VITAMINS CHEWABLE TABLET PO SCH (08:43)
[2023-07-25] MEDS: DOCUSATE SODIUM 100MG CAPSULE PO SCH (08:43)
[2023-07-25] MEDS: ENOXAPARIN 60MG/0.6ML SYRINGE (J1650 PER 10MG) SC SCH (08:47)
[2023-07-25] MEDS ORDERED: MEASLES,MUMPS,RUBELLA VACCINE INJ (MMR-II) SC.IMMUN ONE (09:00)
[2023-07-25 10:03] VITALS: BP 130/78; O2SAT 100
== END 2023-07-25 12:30 | disposition home or self-care (01) | DRG 773 ==
LOC: M LDO 16:33 → M LDI 17:41 → M OBS 22:40
PROVIDERS: ADMIT Obstetrics & Gynecology; ATTEND Obstetrics & Gynecology
PROC: 10D00Z1 Extraction of Products of Conception, Low, Open Approach (ICD-10-PCS; principal; 2023-07-23 19:30)
DX: O60.14X0 Preterm labor third trimester with preterm delivery third trimester, not applicable or unspecified (principal); Z37.0 Single live birth; Z3A.36 36 weeks gestation of pregnancy; O99.824 Streptococcus B carrier state complicating childbirth; Z88.5 Allergy status to narcotic agent; O32.2XX0 Maternal care for transverse and oblique lie, not applicable or unspecified; O34.00 Maternal care for unspecified congenital malformation of uterus, unspecified trimester